=== PATIENT | male | born 1935 | race Caucasian/White ===

== ENCOUNTER 2016-11-07 15:17 | Inpatient (IN) | payer MEDICARE, OTHER ==
[2016-11-07] VITALS (15 sets, daily range): BP systolic 75–125; BP diastolic 47–63; PULSE 48–93; RESP 13–19; O2SAT 94–98
[~2016-11-07] VITALS: Ht 177.8 cm; Wt 80.1 kg
--- NOTE | 2016-11-07 15:31 | ED.REPORT ---
HPI-General Illness Date of Service Nov 07, 2016 ED Provider: Wilner Long MD An 81 year old male with a history of medicated HIV and episodes of similar symptoms is brought to the ED via EMS due to symptomatic bradycardia. The pt was returning from lunch as a passenger in a vehicle when he experienced a near syncopal episode. This episode was preceded by lightheadedness but no pain. The substitute bus driver pulled over and called paramedics after seeing that the pt was breathing. Paramedics found him conscious and responsive but diaphoretic with no radial pulse, a heart rate of 38, and a blood pressure of 86/47. The pt reports that he has been experiencing episodes of lightheadedness and vision changes intermittently for one year. These episodes have never approached the severity of today's episode. He attributed these episodes to low blood pressure. He denies any history of chest pain, shortness of breath, or radiating pain. He also denies a family history of cardiac disease. Nursing Notes Stated Complaint: BRADYCARDIA Chief Complaint: Dysrhythmia/Cardiac Nursing Notes Reviewed: Yes Allergies: Coded Allergies: Penicillins (Verified Allergy, Unknown, 11/07/16) Scheduled Atorvastatin (Lipitor) 10 Mg Tab 10 MG PO DAILY Lisinopril (Lisinopril) 20 Mg Tablet 20 MG PO DAILY Tamsulosin (Flomax) 0.4 Mg Capsule 0.4 MG PO DAILY Miscellaneous Medications Aspirin (Aspirin) 325 Mg Tablet 325 MG PO Darunavir/Cobicistat (Prezcobix 800 mg-150 mg Tablet) 800 Mg-150 Mg Tablet 1 EACH PO Nevirapine (Nevirapine) 200 Mg Tablet 200 MG PO General Time Seen by MD: 15:29 Chief Complaint Other (Symptomatic bradycardia) Hx Obtained From: Patient, EMS Arrived By: Ambulance Sudden in Onset?: Yes Onset Occurred: 1 - 4 hours ago Recent Healthcare: No recent hospitalization, Recent doctor visit Similar Sx Previous: Yes Past Medical History Past Medical History Notes: 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 Jeremy Reza, [place] PCP Dr. Dom Don, [place] Past Medical History HIV (medicated since 1991) similar episodes previously denies ID, CVA, DM Past Surgical History none reported Family History denies family history of cardiac disease Smoking History Former Smoker (quit 1971) Social History Alcohol Use: "Social" Other Social History: Good social support Ambulatory Status Independent Review of Systems Full Review of Systems Constitutional: Denies: Fever Respiratory: Denies: Non-productive cough, Shortness of breath Cardiovascular: Denies: Chest pain GI: Reports: Nausea, Denies: Abdominal pain Musculoskeletal: Denies: Back pain, Neck pain Skin: Reports Diaphoresis, Denies Rash Neurologic: Reports: Lightheaded, Syncope Complete sys rev & neg: except as marked. Physical Exam Vital Signs Vital Signs Date Time Temp Pulse Resp B/P Pulse Ox O2 Delivery O2 Flow Rate FiO2 11/07/16 18:30 90 19 103/57 95 Room Air 11/07/16 18:00 82 19 103/49 97 Room Air 11/07/16 17:50 86 19 101/55 97 Room Air 11/07/16 17:40 84 19 107/56 97 Room Air 11/07/16 17:30 84 19 117/61 97 Room Air 11/07/16 17:20 82 19 114/50 97 Room Air 11/07/16 17:10 75 19 91/48 97 Room Air 11/07/16 17:00 68 17 101/63 97 Room Air 11/07/16 16:50 67 13 101/61 96 Room Air 11/07/16 16:40 69 13 76/53 96 Room Air 11/07/16 16:30 71 14 82/48 96 Room Air 11/07/16 16:20 71 14 93/54 95 Room Air 11/07/16 16:10 57 14 75/54 94 Room Air 11/07/16 15:22 36 48 15 101/47 96 Room Air Initial VS: Reviewed General/Constitutional: Awake, Alert Head / Eyes: Atraumatic, Normocephalic, PERRL, EOMI ENT: Atraumatic, Airway patent, Mucous membranes moist Neck: Atraumatic, Supple, Full range of motion Respiratory / Chest: Atraumatic, Breath sounds NL, Breath sounds = bilat, No respiratory distress Cardiovascular: Regular rhythm, No gallop, No murmurs, No rubs Heart Rate / Rhythm: Positive: Bradycardia distant heart tones Abdomen: Atraumatic, Soft, Non-tender, BS normoactive Back: Atraumatic, Full range of motion Upper Extremities Upper Extremity / MS: Atraumatic, Full range of motion Lower Extremity / Pelvis / MS: Atraumatic, Full range of motion Skin: Atraumatic, Color NL, No rash, Warm, Dry Neurologic: Oriented X3, Speech NL, No motor deficits, No sensory deficits Psychiatric: Affect NL, Mood NL Interpretation & Diagnostics Lab Results Interpretation Result Diagram: 11/07/16 1540 11/07/16 1540 Test 11/07/16 15:40 White Blood Count 8.8th/mm3 (3.8-10.1) Red Blood Count 4.04mil/mm3 (4.40-5.80) Hemoglobin 13.4g/dL (13.8-17.2) Hematocrit 38.9% (41.0-50.0) Mean Corpuscular Volume 96.3fL (81-100) Mean Corpuscular Hemoglobin 33.2pg (27.0-35.0) Mean Corpuscular Hemoglobin Concent 34.4% (32.0-37.0) Red Cell Distribution Width 12.6% (12.3-15.4) Platelet Count 164bil/L (150-400) Neutrophils (%) (Auto) 41.8% (40-74) Lymphocytes (%) (Auto) 48.5% (14-46) Monocytes (%) (Auto) 8.2% (4-12) Eosinophils (%) (Auto) 1.1% (0-5) Basophils (%) (Auto) 0.2% (0-3) Prothrombin Time 10.7sec (8.1-12.5) Prothromb Time International Ratio 1.00ratio Sodium Level 132mEq/L (134-144) Potassium Level 3.8mEq/L (3.5-5.2) Chloride Level 93mEq/L (97-108) Carbon Dioxide Level 24mmol/L (18-29) Blood Urea Nitrogen 23mg/dL (8-27) Creatinine 1.42mg/dL (0.76-1.27) Estimat Glomerular Filtration Rate 51mL/min (>59) Glucose Level 100mg/dL (60-99) Calcium Level 9.6mg/dL (8.5-10.1) Magnesium Level 2.4mg/dL (1.6-2.6) Total Bilirubin 0.6mg/dL (0.0-1.2) Aspartate Amino Transf (AST/SGOT) 26U/L (0-50) Alanine Aminotransferase (ALT/SGPT) 20U/L (0-44) Alkaline Phosphatase 75U/L (25-160) Troponin T < 0.010ug/L (0.0-0.011) Pro-B-Type Natriuretic Peptide 51.95pg/mL (0-486) Total Protein 6.7g/dL (6.4-8.4) Albumin 4.3g/dL (3.4-5.0) ECG Interpretation ECG Interpretation: sinus arrhythmia with a rate of 54 RBBB Time: 15:28 Interpreted by: ED physician ECG Interpretation: normal sinus rhythm with a rate of 69 1st degree AV block RBBB no acute ischemic changes Time: 16:26 Interpreted by: ED physician X-Ray Chest Interpretation Chest Xray Interpretation: IMPRESSION: No acute cardiopulmonary disease. Dictated by: Alex Cramer RRA Interpreted: Reshma Fonseca MD on 11/07/2016 at 16:26 Transcribed by: ROYA on 11/07/2016 at 16:26 Approved by: Reshma Fonseca MD, PhD on 11/07/2016 at 17:26 Interpretation / Wet Read by: Interpret - Radiologist Re-Eval/Medical Decision Med Decision/Clinical Course 81-year-old male who has been remarkably healthy presents with an episode of syncope and bradycardia. He was initially responsive to atropine however once in the department is noted that his blood pressure was drifting down, pulse was not responding appropriately. He is not on any medications that would cause him to have bradycardia. He does not appear to have an acute infection or blood loss. There are no ischemic changes on his EKG. He was treated a second time with atropine 0.5 mg IV and then an epinephrine drip was initiated with good results. He also received 2 L of normal saline IV. Cardiology was consulted. Patient will be hospitalized and observed, it is hoped that with titration of his blood pressure medications his hypotension will resolve. Bradycardia was thought to possibly related to vasovagal response. Transferred to the floor in improved condition. Source of Hx: Old records Time of Eval: 16:12 Patient Status: Condition improved Re-Evaluation/Progress Note: Pt rechecked, who is accompanied by his partner and reports that he is not in pain or discomfort. Additional pt history is obtained. The need for admission is discussed. The pt understands and agrees with the plan. All questions are addressed at this time. Time of Eval: 16:48 Re-Evaluation/Progress Note: Film Loader in ED. Pt's blood pressure is in the 70's with a heart rate in the 70's. Starting epi drip with second liter of saline. Time of Eval: 17:38 Patient Status: Condition improved Re-Evaluation/Progress Note: Pt rechecked, who is resting comfortably. His blood pressure and pulse have improved. The plan for admission is further discussed. Consultation #1: Referral / Consult Name: Jacobo Vaz MD Consulted With: Cardiology Call Returned at: 16:36 Investigator Welfare: Will see patient Note: Consulted with Dr. Vaz, cardiology, regarding pt's case. Dr. Vaz agrees to see the pt. Consultation #2: Referral / Consult Name: Aditya Allan MD Consulted With: Hospitalist Call Returned at: 16:49 Investigator Welfare: Agrees with eval, Agrees with plan, Accepts admit Note: Spoke with Dr. Allan, hospitalist, regarding pt's case. Dr. Allan agrees with the evaluation and agrees to admit the pt. Consultation #3: Referral / Consult Name: Jacobo Vaz MD Consulted With: Cardiology Call Returned at: 18:04 Investigator Welfare: Agrees with eval, Agrees with plan Note: Spoke with Dr. Vaz, cardiology, regarding pt's case. Dr. Vaz agrees with the evaluation and plan. Counseled Regarding: Diagnosis, Lab results, Need for admission Discharge & Departure Primary Impression: Symptomatic bradycardia Additional Impression: Hypotension Hypotension type: unspecified hypotension type Qualified Code: I95.9 - Hypotension, unspecified Disposition: ADMITTED TO HOSPITAL Discharge Condition All VS Reviewed: Yes Condition: Stable Referrals: Jeremy Reza MD Crit Care Except Billable Proc Time Spent: 30-74 minutes Services Performed: Patient management by me, Time spent at bedside, Reviewing test results, Reviewing imaging, Discussing patient care, Documentation in record Scribe Attestation Portions of this note were transcribed by Maritza Molina I, Dr. Long personally performed the history, physical exam and medical decision-making; I reviewed and confirmed the accuracy of the information in the transcribed note. Signed by: Margot Bravo, 11/07/16 and 18:06. copies to: Jeremy Reza MD, Donald L MD Nov 07, 2016 15:31 MARITZA MOLINA Nov 07, 2016 15:53
[2016-11-07] MEDS ORDERED: ASPI325T32 PO (15:33)
[2016-11-07] MEDS ORDERED: ATRV10T PO (15:33)
[2016-11-07] MEDS ORDERED: LISI-567 PO (15:33)
[2016-11-07] MEDS ORDERED: Atropine 1 mg/10 mL (Code) Syringe IVPUSH PRN (15:35)
[2016-11-07 15:48] LABS: BASOPHILS % (AUTO) 0.2 % (0-3); EOSINOPHILS % (AUTO) 1.1 % (0-5); MONOCYTES % (AUTO) 8.2 % (4-12); Mean Corpuscular Hemoglobin 33.2 pg (27.0-35.0); Mean Corpuscular Volume 96.3 fL (81-100); NEUTROPHILS % (AUTO) 41.8 % (40-74); Platelet Count 164 bil/L (150-400)
[2016-11-07 16:25] LABS: Magnesium 2.3 mg/dL (1.6-2.6)
[2016-11-07] MEDS ORDERED: EPINEPHrine 1 mg/mL Inj 10 MG in 0.9% Sodium Chloride 240 ML IV SCH (16:25)
--- NOTE | 2016-11-07 16:27 | DRSVH ---
PROCEDURE: X-RAY CHEST ONE VIEW, PORTABLE ([id number]) INDICATIONS: syncope TECHNIQUE: One view of the chest was acquired. COMPARISON: None. FINDINGS: Surgical changes and devices: None. Lungs and pleura: No pleural effusions or pneumothorax. Lung volumes are low no definite acute card iopulmonary process identified.. Mediastinum: Mediastinal contours appear normal. Heart size is normal. Bones and chest wall: No suspicious bony lesions. Overlying soft tissues appear unremarkable. IMPRESSION: No acute cardiopulmonary disease. Dictated by: Alex Cramer [facility] Interpreted: Reshma Fonseca MD on 11/07/2016 at 16:26 Transcribed by: ROYA on 11/07/2016 at 16:26 Approved by: Reshma Fonseca MD, PhD on 11/07/2016 at 17:26
[2016-11-07 16:40] LABS: TROPONIN T < 0.010 ug/L (0.0-0.011)
[2016-11-07] MEDS ORDERED: 0.9% Sodium Chloride 1,000 ML IV ONE (16:50)
--- NOTE | 2016-11-07 18:34 | PCM.CHPCAR ---
Consult Subjective Date of service Nov 07, 2016 Date of admit Provider Requesting Consult Requesting Provider: Wilner Long MD Primary Care Physician Primary Care Provider: Other,Physician Chief Complaint Near syncope History of Present Illness This is a very delightful male who has long standing history of HIV and being treated with antiretroviral medications and has done quite well. He has history of HTN, hyperlipidemia, BPH as well. He lives in [facility] and has his PCP near [place] and is currently sees a steam power plant operator Jeremy Reza at [facility] for history of bradycardia and hypotension. Apparently he has other episodes of near syncope but not as severe as today's. He was with a friend and eating a local pub in [place] and on the way back home, he became very diaphoretic and nauseous for about 5 minutes. His friend stopped on the side of the road and at this point Mr. Zaldivar became more symptomatic and had became semi unresponsive but was try to speak. Paramedics were called and arrived soon thereafter and EKG was completed on the field and showed profound sinus bradycardia and his BP was <80 SBP mmHg. He was given atropine and his HR came up and he was started on IVFs but prior to this treatment, he was becoming more awake. He was brought to the ER and he was still hypotensive and bradycardic. His SBP's were in the range of 70-90 mmHg and HR was 50-70 bpm. He was given another dose of atropine and eventually started on low dose epinephrine. By the time I saw him he was fully alert and 1 liter of normal saline was completed. His friend states that he has similar episodes in the past. One other severe episode occurred during or after his knee surgery. He was eventually established with his current steam power plant operator and an echocardiogram and Holter monitor were completed. His echocardiogram essentially showed normal LVEF and grade II LV diastolic dysfunction and no significant valvular HD and his Holter monitor showed profound sinus bradycardia but during sleeping hours and mean HR was 63 bpm with longest pause noted was 2.2 seconds. Many PACS, representing 1% of total beats with occasional runs of atrial tachycardia , and occasional PVCs. NO symptoms were reported. He had a smaller episode about 1 year with Etoh (beer) as well. He was on Doxazosin but he was placed on Lisinopril for BP control and Tamsulosin for his BPH as well. He takes atorvastatin for his hyperlipidemia. He states his normal creatinine is around 1.0-1.2. I asked the patient in the ER to move his legs and arms for 1 minute and he had appropriate chronotropic response and BP response. His HR was around 70 and went up to 90 bpm and SBP went from 110 to 117 mmHg. He was started on epinephrine at a very low dose. Review of Systems General: Reports: Energy Fatigue Ears, Nose, Mouth & Throat: Denies: Any hearing loss Epistaxis or hoarseness Respiratory: Denies: Orthopnea or PND Significant dyspnea Cardiovascular: Denies: Atypical chest discomfort Chest Discomfort Genitourinary: Reports: Prostate symptoms Musculoskeletal: Denies: Significant joint or back problems Significant myalgias Neurological: Denies: Any history of stroke/TIA symptoms PMH Past Medical History H/O of sinus bradycardia and hypotension Right carotid disease (?100% occlusion) HTN BPH Hyperlipidemia HIV + Scheduled Atorvastatin (Lipitor) 10 Mg Tab 10 MG PO DAILY (Reported) Lisinopril (Lisinopril) 20 Mg Tablet 20 MG PO DAILY (Reported) Miscellaneous Medications Aspirin (Aspirin) 325 Mg Tablet 325 MG PO (Reported) Current Inpatient Medications Current Medications Atropine Sulfate 0.5 mg ONCE PRN IVPUSH; Start 11/07/16 at 15:35 Allergies: Uncoded Allergies: PENICILLIN (Allergy, Unknown, 11/07/16) Family History Family History Patient denies any significant family hx of premature CAD or any significant cardiac history Social History Hx Alcohol Use: Yes (daily evening drink)Hx Substance Use: No Smoking Status: Former Smoker (quit 1971) Exam Vital Signs Vital Sign - Last Date Time Temp Pulse Resp B/P Pulse Ox O2 Delivery O2 Flow Rate FiO2 11/07/16 15:22 36 48 15 101/47 96 Room Air General: Pleasant Cooperative Skin: Warm & dry to touch Head: Normocephalic Eye: EOMS intact No arcus or xanthelasma Neck: No JVD Ears, Nose & Throat: Ears no gross abnormalities Nose no gross abnormalities Chest: Clear auscultation w/o rales/wheeze Cardiac: Normal non-displaced apical impulse Regular rhythm with normal S1-S2 Systolic murmur (3/6 HSM) Pulses: Pulses full/equal all extremities Abdomen: Soft, non-distended, non-tender Lymphatic: No palpable lymphadenopathy Extremities: Warm w/o deformities,erythema noted Neurological: Alert & oriented Psychological: Affect & interaction appropriate Lab and Diagnostics Labs CBC Test 11/07/16 15:40 White Blood Count 8.8th/mm3 (3.8-10.1) Red Blood Count 4.04mil/mm3 (4.40-5.80) Hemoglobin 13.4g/dL (13.8-17.2) Hematocrit 38.9% (41.0-50.0) Mean Corpuscular Volume 96.3fL (81-100) Mean Corpuscular Hemoglobin 33.2pg (27.0-35.0) Mean Corpuscular Hemoglobin Concent 34.4% (32.0-37.0) Red Cell Distribution Width 12.6% (12.3-15.4) Platelet Count 164bil/L (150-400) Neutrophils (%) (Auto) 41.8% (40-74) Lymphocytes (%) (Auto) 48.5% (14-46) Monocytes (%) (Auto) 8.2% (4-12) Eosinophils (%) (Auto) 1.1% (0-5) Basophils (%) (Auto) 0.2% (0-3) CMP Test 11/07/16 15:40 Sodium Level 132mEq/L Potassium Level 3.8mEq/L Chloride Level 93mEq/L Carbon Dioxide Level 24mmol/L Blood Urea Nitrogen 23mg/dL Creatinine 1.42mg/dL Estimat Glomerular Filtration Rate 51mL/min Glucose Level 100mg/dL Calcium Level 9.6mg/dL Magnesium Level 2.3mg/dL Total Bilirubin 0.6mg/dL Aspartate Amino Transf (AST/SGOT) 26U/L Alanine Aminotransferase (ALT/SGPT) 20U/L Alkaline Phosphatase 75U/L Troponin T < 0.010ug/L Pro-B-Type Natriuretic Peptide 51.95pg/mL Total Protein 6.7g/dL Albumin 4.3g/dL Result Diagram: 11/07/16 1540 11/07/16 1540 X-Rays, CTs and MRIs Date of Service: 11/07/16 1531 PROCEDURE: X-RAY CHEST ONE VIEW, PORTABLE ([id number]) INDICATIONS: syncope TECHNIQUE: One view of the chest was acquired. COMPARISON: None. FINDINGS: Surgical changes and devices: None. Lungs and pleura: No pleural effusions or pneumothorax. Lung volumes are low no definite acute cardiopulmonary process identified.. Mediastinum: Mediastinal contours appear normal. Heart size is normal. Bones and chest wall: No suspicious bony lesions. Overlying soft tissues appear unremarkable. IMPRESSION: No acute cardiopulmonary disease. 12-lead ECG Sinus bradycardia with RBBB Assessment & Plan Problems: (1) Vaso vagal episode Plan: Based on his presentation, I believe he is simply prone to have a non- classical form of neurocardiogenic near syncope. He does not have any clear cut stressors but I believe in the setting of taking lisinopril and tamsulosin and Etoh intake, this possibly could have set this off. Nevertheless, he does not need urgent transvenous pacer for now. His creatinine is higher than normal so he might be dehydrated as well. We discussed briefly about the medications that can exacerbate his hypotension. 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 I would recommend to either stop his Lisinopril or decrease it to 10 mg once a day and go from there. He may continue with his tamsulosin for his BPH and should probably refrain from Etoh as well. Repeat another BMP tomorrow morning and see where his mild ARF stands. He does have bradycardia but I am not terribly sure if a pacemaker will prevent his near syncopal episodes. He has appropriate chronotropic response as well. I have also check his antiretroviral medications and none of these can cause significant bradycardia or AV block. Make an attempt during the night to titrate off his epinephrine drip after IV hydration. If he still has persistent, significant hypotension with the recommendations mentioned above then please contact Dr. Wallace tomorrow to further assist. If stable, then he may go home and follow up with his PCP and steam power plant operator in [place] ([facility]). Status: Resolved ICD Code: R55 (2) HTN (hypertension) Qualifiers: Hypertension type: essential hypertension Hypertension goal: less than 140 /90 Qualified Code: I10 - Essential (primary) hypertension Plan: Allow patient to have some degree of hypertension by backing off on his lisinopril. Status: Chronic ICD Code: I10 (3) BPH (benign prostatic hyperplasia) Qualifiers: Prostatic enlargement morphology: unspecified morphology Lower urinary tract symptom presence: symptoms present Qualified Code: N40.1 - Enlarged prostate with lower urinary tract symptoms Plan: For now, continue with tamsulosin for his symptomatic BPH. Status: Chronic ICD Code: N40.0 (4) HIV (human immunodeficiency virus infection) Plan: Continue with antiretroviral medications. Status: Chronic ICD Code: Z21 (5) Hyperlipidemia Qualifiers: Hyperlipidemia type: unspecified Qualified Code: E78.5 - Hyperlipidemia, unspecified Plan: May continue with atorvastatin. If indeed he has severe carotid disease , then recommend to increase it to 40 mg po qhs as tolerated. Follow up LFTs if one increases statin. Status: Chronic ICD Code: E78.5 Time spent 80 minutes Copies to: Jeremy Reza MD, Oscar J MD Nov 07, 2016 18:34
[2016-11-07] MEDS ORDERED: Ondansetron 2 mg/mL 2 mL Inj IVPUSH PRN (18:35)
[2016-11-07] MEDS ORDERED: Alum-Mag Hydrox-Simeth 30 mL Suspension PO PRN (18:35)
--- NOTE | 2016-11-07 20:30 | NUR ---
Admit to CCU Pt admitted to CCU room 2016 from ED via [facility] in stable condition. Able to transfer from [facility] to bed without problem. A&O x 3. Able to [place] with CMS intact. Answers all question appropriately. Tele at this time SR 90s with 1st degree AVB and IVCD. Was on epi gtt and this was turned/titrated off as pt VSS and reports feeling "jittery". SpO2 high 90s on RA. Denies CP, SOB, ELIZONDO, palpitations, dizziness, n/v/d or abdominal pain. Oriented pt to unit, floor, and call light. He has antiretroviral medications that his spouse Matthew will bring in the morning. All questions asked/answered. Care ongoing
--- NOTE | 2016-11-07 21:27 | PCM.HPMED ---
Subjective Date of Service Nov 07, 2016 Primary Provider: Admitting Physician: Aditya Allan MD Primary Care Physician: Other,Physician Attending Physician: Aditya Allan MD Chief Complaint: Near syncope History of Present Illness: This is a very delightful male who has long standing history of HIV and being treated with antiretroviral medications and has done quite well. He has history of HTN, hyperlipidemia, BPH as well. He lives in [facility] and has his PCP near [place] and is currently sees a clinical nurse manager Jeremy Reza at [facility] for history of bradycardia and hypotension. Apparently he has other episodes of near syncope but not as severe as today's. He was with a friend and eating a local pub in [place] and on the way back home, he became very diaphoretic and nauseous for about 5 minutes. His friend stopped on the side of the road and at this point Mr. Zaldivar became more symptomatic and had became semi unresponsive but was try to speak. Paramedics were called and arrived soon thereafter and EKG was completed on the field and showed profound sinus bradycardia and his BP was <80 SBP mmHg. He was given atropine and his HR came up and he was started on IVFs but prior to this treatment, he was becoming more awake. He was brought to the ER and he was still hypotensive and bradycardic. His SBP's were in the range of 70-90 mmHg and HR was 50-70 bpm. He was given another dose of atropine and eventually started on low dose epinephrine. By the time I saw him he was fully alert and 1 liter of normal saline was completed. His friend states that he has similar episodes in the past. One other severe episode occurred during or after his knee surgery. He was eventually established with his current clinical nurse manager and an echocardiogram and Holter monitor were completed. His echocardiogram essentially showed normal LVEF and grade II LV diastolic dysfunction and no significant valvular HD and his Holter monitor showed profound sinus bradycardia but during sleeping hours and mean HR was 63 bpm with longest pause noted was 2.2 seconds. Many PACS, representing 1% of total beats with occasional runs of atrial tachycardia , and occasional PVCs. NO symptoms were reported. He had a smaller episode about 1 year with Etoh (beer) as well. He was on Doxazosin but he was placed on Lisinopril for BP control and Tamsulosin for his BPH as well. He takes atorvastatin for his hyperlipidemia. He states his normal creatinine is around 1.0-1.2. I asked the patient in the ER to move his legs and arms for 1 minute and he had appropriate chronotropic response and BP response. His HR was around 70 and went up to 90 bpm and SBP went from 110 to 117 mmHg. He was started on epinephrine at a very low dose. Review of Systems: No symptoms preceding this event specifically Gen.: No fevers chills weight loss weight gain Eyes: no visual disturbances or blurring vision HEENT: No nose/throat drainage, no pain in ears or throat, no hearing loss Lymph: No lymph nodes noted Cardiac: No chest pain, orthopnea, PND, palpitations , pedal edema or dyspnea on exertion Pulmonary: no cough, wheezing or bringing up of sputum GI: No anorexia nausea vomiting blood or black in the stool : no dysuria hematuria urinary frequency or decrease in urine output Musculoskeletal: Joint swelling no joint pain no new muscle aches or back pain Neuro: No seizures no new focal weakness, numbness or tingling loss of consciousness as noted Psychiatric: New new anxiety insomnia or depression Endocrine: No new heat or cold intolerances polyuria or polydipsia Hematology: No lymphadenopathy or easy bleeding or bruising noted skin: No new rashes, stasis dermatitis Allergies Uncoded Allergies: PENICILLIN (Allergy, Unknown, 11/07/16) Home Medications reyataz Viaamune Norvir asa atorvastatin lisinopril tamsulosin PMH HIV (medicated since 1991) similar episodes previously H/O of sinus bradycardia and hypotension Right carotid disease (?100% occlusion) HTN BPH Hyperlipidemia HIV + denies ND, CVA, DM Smoking History Former Smoker (quit 1971) Social History Alcohol Use: "Social" Other Social History: Good social support Ambulatory Status Independent Family History No known history of heart disease Social History Hx Alcohol Use: Yes (daily evening drink) Hx Substance Use: No Smoking Status: Former Smoker (quit 1971) Exam Vital Signs Vital Sign - Last Date Time Temp Pulse Resp B/P Pulse Ox O2 Delivery O2 Flow Rate FiO2 11/07/16 19:10 36 90 19 103/57 95 Room Air Exam Gen.- A+ O 3 no apparent distress. Eyes- open conjunctiva clear, pupils equal nonicteric Mouth- oral mucosa moist, no exudate ENT- ears normal, nose normal Neck- supple/trach midline CVS- RRR no murmur or gallop Lungs CTA GI- NABS/NT soft Musc- moving 4 no obvious deformity Neuro- cranial nerves II through XII intact to gross examination, nonfocal Skin- warm and dry, no rashes/lesions/wounds noted Psych- pleasant and appropriate, Lab and Diagnostics Labs Troponin normal, LFTs normal, BMP normal, PT/INR normal 11/07 Result Diagram: 11/07/16 1540 11/07/16 1540 X-Rays, CTs and MRIs CXR- No acute cardiopulmonary disease. 11/07 12-lead ECG * Slow sinus arrhythmia 54, QTC 449ms . Right bundle branch block * Borderline low voltage, extremity leads * No previous study for comparison 11/07 Assessment & Plan 81-year-old male with near syncope and bradycardia admitted to the hospital seen by cardiology thank you Dr. Vaz. We will check cardiac enzymes and repeat EKG in the morning and hydrate the patient overnight. He may take his antiretrovirals when he gets them in the morning and I will write a nursing order to that extent and I will defer any further cardiac workup such as imaging to Dr. James and we will speak in the morning. Syncope-as per cardiology possibly vasovagal in the setting of multiple medical medications and aggravated by alcohol monitor overnight Hypertension-holding lisinopril for now BPH-holding tamsulosin for now Cerebrovascular disease-reportedly 100% right carotid occluded continue aspirin and statin Hyperlipidemia-continue atorvastatin Prophylaxis-I am going to prescribe numbness I believe we are observing in discharging this patient in the a.m. Disposition-full code from home reyataz can cause 1' (6%) and 2' heart block norvir can cause QT prolonged (rare) Aditya Allan MD Nov 07, 2016 21:27
[2016-11-07] MEDS ORDERED: Senna-Docusate 8.6-50 mg Tablet PO PRN (21:30)
[2016-11-07] MEDS ORDERED: Polyethylene Glycol (PEG) 17 Gm Powder PO PRN (21:30)
[2016-11-07 21:32] LABS: APPEARANCE,URINE CLEAR (CLEAR,HAZY); COLOR,URINE YELLOW (YELLOW); OCCULT BLOOD,URINE NEGATIVE (NEGATIVE); UROBILINOGEN,URINE NORMAL (NORMAL)
[2016-11-07] MEDS: 0.9% NaCl + KCl 20 mEq/L 1,000 ML IV SCH (22:05)
[2016-11-07] MEDS ORDERED: [UNRECOGNIZED DRUG - CODE] PO (22:54)
[2016-11-07] MEDS ORDERED: DARU1TAB PO (22:54)
[2016-11-07] MEDS ORDERED: TAMS0.4C98 PO (22:54)
[2016-11-08 00:35] VITALS: BP 110/58; PULSE 51; RESP 14; O2SAT 94
[2016-11-08 03:58] LABS: Mean Corpuscular Hemoglobin 32.7 pg (27.0-35.0); Mean Corpuscular Volume 96.6 fL (81-100)
[2016-11-08 05:20] VITALS: BP 112/57; PULSE 42; RESP 14; O2SAT 97
--- NOTE | 2016-11-08 05:23 | NUR ---
Tele Tele remained SR/SB 40s-60s with 1st degree block and IVCD throughout night. Had brief episodes with HR in 30s while asleep. Pt was asymptomatic and remained free of CP, SOB, or dizziness. Independent in room and cooperative with care. Will continue to monitor. Care ongoing
[2016-11-08] MEDS: 0.9% NaCl + KCl 20 mEq/L 1,000 ML IV SCH (07:55)
[2016-11-08 08:30] VITALS: BP 142/58; PULSE 44; RESP 12; O2SAT 97
[2016-11-08 09:31] LABS: Creatine Kinase 147 U/L (21-232); TROPONIN T < 0.010 ug/L (0.0-0.011)
--- NOTE | 2016-11-08 10:22 | PCM.PNCARD ---
Subjective Date of service Nov 08, 2016 Chief Complaint Near syncope History of Present Illness Patient had marked sinus bradycardia during his sleep. However, he did not develop any high degree AV block or pauses. He has been asymptomatic since admission. He has been given several liters of NS since admission and his creatinine has improved. He has been off of his epinephrine drip as well. Constitutional: Denies: Chills, Fever Eyes: Denies: Blurred Vision Cardiovascular: Denies: Chest Pain Respiratory: Denies: SOB with Exertion, Shortness of Breath Gastrointestinal: Denies: Abdominal Pain, Nausea, Vomiting Genitourinary: Denies: Hematuria, Nocturia Musculoskeletal: Denies: Neck Pain, Shoulder Pain Neurological: Denies: Confusion Endocrine: Reports: Blood Glucose Review Exam Vital Signs Vital Sign - Last Date Time Temp Pulse Resp B/P Pulse Ox O2 Delivery O2 Flow Rate FiO2 11/08/16 05:20 42 14 112/57 97 Room Air 11/08/16 00:35 36.9 Intake and Output 11/07/16 11/07/16 11/08/16 Cumulative From/Thru 15:00 23:00 07:00 11/07/16 15:22 - 11/07/16 20:25 Intake Total 3000 ml 3000 ml Balance 3000 ml 3000 ml IV Total 3000 ml 3000 ml General: Pleasant Cooperative Neck: No JVD Chest: Clear auscultation w/o rales/wheeze Cardiac: Regular rhythm Abdomen: Soft, non-distended, non-tender Neurological: Alert & oriented Lab and Diagnostics Labs CBC Test 11/07/16 15:40 11/08/16 03:40 Neutrophils (%) (Auto) 41.8% (40-74) Lymphocytes (%) (Auto) 48.5% (14-46) Monocytes (%) (Auto) 8.2% (4-12) Eosinophils (%) (Auto) 1.1% (0-5) Basophils (%) (Auto) 0.2% (0-3) White Blood Count 4.4th/mm3 (3.8-10.1) Red Blood Count 3.55mil/mm3 (4.40-5.80) Hemoglobin 11.6g/dL (13.8-17.2) Hematocrit 34.3% (41.0-50.0) Mean Corpuscular Volume 96.6fL (81-100) Mean Corpuscular Hemoglobin 32.7pg (27.0-35.0) Mean Corpuscular Hemoglobin Concent 33.8% (32.0-37.0) Red Cell Distribution Width 12.6% (12.3-15.4) Platelet Count 105bil/L (150-400) CMP Test 11/07/16 15:40 11/08/16 03:40 11/08/16 08:27 Magnesium Level 2.4mg/dL Total Bilirubin 0.6mg/dL Aspartate Amino Transf (AST/SGOT) 26U/L Alanine Aminotransferase (ALT/SGPT) 20U/L Alkaline Phosphatase 75U/L Pro-B-Type Natriuretic Peptide 51.95pg/mL Total Protein 6.7g/dL Albumin 4.3g/dL Sodium Level 138mEq/L Potassium Level 4.5mEq/L Chloride Level 105mEq/L Carbon Dioxide Level 23mmol/L Blood Urea Nitrogen 18mg/dL Creatinine 0.95mg/dL Estimat Glomerular Filtration Rate 81mL/min Glucose Level 108mg/dL Calcium Level 8.6mg/dL Total Creatine Kinase 147U/L Troponin T < 0.010ug/L Result Diagram: 11/08/1633911/08/16 034 Assessment & Plan Problems: (1) Vaso vagal episode Plan: Most likely vagal related episode although he is certainly prone to have symptoms much easier due to his baseline bradycardia. He is currently hypertensive so we will add back his Lisinopril but only at 5 mg once a day. I have asked him to monitor his BP daily and if it goes above 150 mmHg on a persistent basis then he should call his PCP and consider increasing his Lisinopril to 5 mg twice a day. If he is able to ambulate today without any symptoms then he may go home and follow up with his show host or hostess. 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 We also discussed about pressure stockings and other maneuvers to prevent another near syncope or syncope. Status: Resolved ICD Code: R55 (2) HTN (hypertension) Qualifiers: Hypertension type: essential hypertension Hypertension goal: less than 140 /90 Qualified Code: I10 - Essential (primary) hypertension Plan: Restart Lisinopril but low dose at around 5 mg once a day. This will most likely need to be titrated accordingly to his symptoms and BP numbers. Status: Chronic ICD Code: I10 (3) BPH (benign prostatic hyperplasia) Qualifiers: Prostatic enlargement morphology: unspecified morphology Lower urinary tract symptom presence: symptoms present Qualified Code: N40.1 - Enlarged prostate with lower urinary tract symptoms Plan: He may restart his Flomax if indeed he has symptomatic BPH or significant urinary retention. Status: Chronic ICD Code: N40.0 (4) HIV (human immunodeficiency virus infection) Plan: Continue with antiretroviral medications. Status: Chronic ICD Code: Z21 (5) Hyperlipidemia Qualifiers: Hyperlipidemia type: unspecified Qualified Code: E78.5 - Hyperlipidemia, unspecified Plan: May continue with atorvastatin. If indeed he has severe carotid disease , then recommend to increase it to 40 mg po qhs as tolerated. Follow up LFTs if one increases statin. Status: Chronic ICD Code: E78.5 Time spent 30 minutes copies to: Jeremy Reza MD, Oscar J MD Nov 08, 2016 10:22
--- NOTE | 2016-11-08 10:38 | NUR ---
Case Management: IMM given and explained to Pt at 10:05. Teresita BUCHANAN RN
[2016-11-08 12:33] VITALS: BP 117/60; PULSE 35; RESP 16; O2SAT 97
--- NOTE | 2016-11-08 14:21 | PCM.DIMED ---
Discharge Instructions Date of Service Nov 08, 2016 Dates of Hospitalization Nov 07, 2016 at 18:47 Discharge Diagnosis Discharge Diagnosis Bradycardia, hypotension, probable neurogenic cardio syncope Diet Heart Healthy Activity No restrictions Call your provider Shortness of breath, Other (of greatest concern that B near syncope and dizziness) Patient Instructions You should follow up with black powder glazing operator as soon as possible. If you continue to have symptoms really feel like passing out please present to the emergency room for further evaluation. Follow-up Provider: [facility] Follow-up with PCP in: 1 week Provider: Jacobo Vaz MD Follow-up in: Other (call and try and schedule appointment to establish care) Additional Information Patient physician and black powder glazing operator unknown he would like to do follow-up with Dr. James if possible Attending's Statement Have ongoing episodes of bradycardia with rates in the 20s and 30s that are asymptomatic to continue to be concerning. I would start taking a higher salt diet, and obtain support hose in the hope that these will minimize orthostatic symptoms. I might try a less expensive side initially and if it seems to be helping then by a more expensive pair. I would have a blood pressure cuff so I could measure my blood pressure and my heart rate and keep a log and see how it correlates with my symptoms. Aditya Allan MD Nov 08, 2016 14:21
[2016-11-08] MEDS ORDERED: LISI-571 PO (14:22)
--- NOTE | 2016-11-08 14:53 | NUR ---
Social Work: Initial Assessment and Discharge D: per EMR review, pt is an 81 year old male admitted for symptomatic bradycardia. pt is Medicare with no supplement or LTC or VA Benefits. PCP Is listed as other. MOE and JANAYA is Efrain Meyer, spouse, . Advanced directives not on file but requested from pt who will bring copy post-discharge. Pt on day 1 of stay. PLUG STITCHER met with pt at bedside. Sw role explained. See initial assessment. Pt lives at home with his s/o. He is I at baseline and uses no DME. Pt has never had HH or Skilled rehab. Pt identifies no home needs and is eager to return home. Pt states his family will transport him. EMR reviewed; no sw needs identified at this time. Pt ambulating I during admission. A: pt who is I at baseline. P: Anticipate pt to discharge home today via POV. FUNMILAYO Sexton Addendum: 11/08/16 at 1456 by NIYA CERVANTES Amended: Links added.
--- NOTE | 2016-11-08 15:20 | NUR ---
I received report and took over care of the patient. Patient had no reports of vision changes, which he states happens prior to syncopal events. Patient's HR has dropped in to the low 30's with no symptoms, and BP was stable. Patient walked a complete loop around the unit with no symptoms. I taught patient discharge instructions including change in medication and follow up appointment. Patient and partner had no further questions.
--- NOTE | 2016-11-08 18:20 | PCM.DC.MED ---
Discharge Summary Date of Service Nov 08, 2016 Dates of Hospitalization Date of Hospital Admission Nov 07, 2016 at 18:47 Date of Discharge: Nov 08, 2016 Providers: Admitting Physician: Lilian Allan MD Primary Care Physician: Other,Physician Attending Physician: Lilian Allan MD Diagnosis at Time of Discharge Diagnosis at Time of Discharge Bradycardia, cardio/ neurogenic syncope Consultations Cardiology Jacob Procedures XRay, CTs & MRIs CXR- No acute cardiopulmonary disease. 11/07 ECG 12 Lead * Slow sinus arrhythmia 54, QTC 449ms . Right bundle branch block * Borderline low voltage, extremity leads * No previous study for comparison 11/07 Brief History diaphoretic and nauseous for about 5 minutes became semi unresponsive but was try to speak, EKG was completed on the field and showed profound sinus bradycardia and his BP was <80 SBP mmHg. He was given atropine and his HR came up and he was started on IVFs but prior to this treatment, he was becoming more awake. Hospital Course 81-year-old male with near syncope and bradycardia admitted to the hospital seen by cardiology thank you Dr. Vaz. We will check cardiac enzymes and repeat EKG in the morning and hydrate the patient overnight. He may take his antiretrovirals when he gets them in the morning and I will write a nursing order to that extent and I will defer any further cardiac workup such as imaging to Dr. James and we will speak in the morning. Syncope-as per cardiology possibly vasovagal in the setting of multiple medical medications and aggravated by alcohol monitor overnight Hypertension-holding lisinopril for now BPH-holding tamsulosin for now Cerebrovascular disease-reportedly 100% right carotid occluded continue aspirin and statin Hyperlipidemia-continue atorvastatin Prophylaxis-I am going to prescribe numbness I believe we are observing in discharging this patient in the a.m. Disposition-full code from home reyataz can cause 1' (6%) and 2' heart block norvir can cause QT prolonged (rare) Patient remained bradycardic overnight with rates down into the 20s even during the day off all treatment. We hydrate him he became hypertensive and asymptomatic. While this extremely slow heart rate makes me nervous cardiology had cleared him and he was no longer orthostatic so we discharged him home with the advice to follow up with his cork pressing machine operator. The patient very much appreciated cork pressing machine operator here and wondered whether he could get in to see him as it is not really any closer to then going down to [place] where his cork pressing machine operator is now. His discharge in stable improved condition on a lesser dose of lisinopril down from 20 to now 5 mg and we are holding his tamsulosin. I am also recommending that he try out support hose as these may mitigate some of his orthostatic symptoms and check his blood pressure and pulse and Mycolog to bring in to see his caregivers. Exam Vital Signs (Last) Date Time Temp Pulse Resp B/P Pulse Ox O2 Delivery O2 Flow Rate FiO2 11/08/16 05:20 42 14 112/57 97 Room Air 11/08/16 00:35 36.9 Test 11/07/16 15:40 11/07/16 21:12 11/08/16 03:40 Neutrophils (%) (Auto) 41.8% (40-74) Lymphocytes (%) (Auto) 48.5% (14-46) Monocytes (%) (Auto) 8.2% (4-12) Eosinophils (%) (Auto) 1.1% (0-5) Basophils (%) (Auto) 0.2% (0-3) Prothrombin Time 10.7sec (8.1-12.5) Prothromb Time International Ratio 1.00ratio Magnesium Level 2.4mg/dL (1.6-2.6) Total Bilirubin 0.6mg/dL (0.0-1.2) Aspartate Amino Transf (AST/SGOT) 26U/L (0-50) Alanine Aminotransferase (ALT/SGPT) 20U/L (0-44) Alkaline Phosphatase 75U/L (25-160) Troponin T < 0.010ug/L (0.0-0.011) Pro-B-Type Natriuretic Peptide 51.95pg/mL (0-486) Total Protein 6.7g/dL (6.4-8.4) Albumin 4.3g/dL (3.4-5.0) Urine Color Yellow (YELLOW) Urine Appearance Clear (CLEAR,HAZY) Urine pH 6.0 (5.0-8.0) Urine Specific [place] 1.010 (1.003-1.035) Urine Protein Negativemg/dL (NEG,TRACE) Urine Glucose (UA) Negativemg/dL (NEGATIVE) Urine Ketones Negativemg/dL (NEGATIVE) Urine Occult Blood Negative (NEGATIVE) Urine Nitrite Negative (NEGATIVE) Urine Bilirubin Negative (NEGATIVE) Urine Urobilinogen Normalmg/dL (NORMAL) Urine Leukocyte Esterase Negative (NEGATIVE) Urine RBC 0-2/hpf (0-2) Urine WBC 0-5/hpf (0-5) Urine Epithelial Cells Occasional/hpf (NONE-MOD) Urine Crystals None seen (NONE SEEN) Urine Bacteria None/hpf (NONE-FEW) Urine Hyaline Casts None/lpf (NONE) Urine Granular Casts None seen (NONE SEEN) Urine Waxy Casts None seen (NONE SEEN) Urine Red Blood Cell Casts None seen (NONE SEEN) Urine White Blood Cell Casts None seen (NONE SEEN) Urine Mucus None seen (None Seen) Urine Trichomonas None seen (NONE SEEN) Urine Yeast None (NONE SEEN) Urinalysis Comment None Urine Culture Reflexed Not indicated White Blood Count 4.4th/mm3 (3.8-10.1) Red Blood Count 3.55mil/mm3 (4.40-5.80) Hemoglobin 11.6g/dL (13.8-17.2) Hematocrit 34.3% (41.0-50.0) Mean Corpuscular Volume 96.6fL (81-100) Mean Corpuscular Hemoglobin 32.7pg (27.0-35.0) Mean Corpuscular Hemoglobin Concent 33.8% (32.0-37.0) Red Cell Distribution Width 12.6% (12.3-15.4) Platelet Count 105bil/L (150-400) Sodium Level 138mEq/L (134-144) Potassium Level 4.5mEq/L (3.5-5.2) Chloride Level 105mEq/L (97-108) Carbon Dioxide Level 23mmol/L (18-29) Blood Urea Nitrogen 18mg/dL (8-27) Creatinine 0.95mg/dL (0.76-1.27) Estimat Glomerular Filtration Rate 81mL/min (>59) Glucose Level 108mg/dL (60-99) Calcium Level 8.6mg/dL (8.5-10.1) Discharge Medications Discharge Medications Atorvastatin (Lipitor) 10 Mg Tab 10 MG PO DAILY (Reported) Lisinopril (Lisinopril) 5 Mg Tablet 5 MG PO DAILY Prescribed by: LILIAN ALLAN MD Miscellaneous Medications Aspirin (Aspirin) 325 Mg Tablet 325 MG PO (Reported) Darunavir/Cobicistat (Prezcobix 800 mg-150 mg Tablet) 800 Mg-150 Mg Tablet 1 EACH PO (Reported) Nevirapine (Nevirapine) 200 Mg Tablet 200 MG PO (Reported) Followup Plan Disposition: To home independent Follow-up plan Patient's primary care and cork pressing machine operator are not within the system, we have recommended he follow up with both of them as soon as possible. In the setting that in the current information with prior information may help them make further decisions as to further treatment course/plan. Discharge Diet: No restrictions, Heart Healthy, Other (I actually suggested patient does not have a sodium restriction) Discharge Activity: No restrictions Time spent 31 minutes Lilian Allan MD Nov 08, 2016 07:55
== END 2016-11-08 15:27 | disposition home or self-care (01) | DRG 310 ==
LOC: EDBD 15:17 → SED 15:17 → PCC 18:47 → OBSVTOIN 18:47 → CCU 19:27
PROVIDERS: ADMIT Hospitalist; ATTEND Hospitalist
DX: I49.8 Other specified cardiac arrhythmias (principal); E86.0 Dehydration; I45.10 Unspecified right bundle-branch block; I10 Essential (primary) hypertension; E78.5 Hyperlipidemia, unspecified; N40.0 Benign prostatic hyperplasia without lower urinary tract symptoms; Z21 Asymptomatic human immunodeficiency virus [HIV] infection status; Z87.891 Personal history of nicotine dependence